=== PATIENT | female | born 1960 | race Caucasian/White ===

== ENCOUNTER 2019-04-23 15:28 | Outpatient (CLI) | payer MEDICARE | END 2019-04-23 15:29 | disposition home or self-care (01) | LOC: DTY/OP 15:28 | PROVIDERS: ATTEND Family Medicine | DX: E66.3 Overweight (principal); E11.9 Type 2 diabetes mellitus without complications | CPT/HCPCS: 97802 ==

== ENCOUNTER 2021-09-14 08:54 | Outpatient (CLI) | payer MEDICARE | END 2021-09-14 08:55 | disposition home or self-care (01) | LOC: BICMAMMO 08:54 | PROVIDERS: ATTEND Family Medicine | DX: Z12.31 Encounter for screening mammogram for malignant neoplasm of breast (principal) | CPT/HCPCS: 77063; 77067 ==

== ENCOUNTER 2023-04-14 13:38 | Outpatient (CLI) | payer MEDICARE | END 2023-04-14 13:39 | disposition home or self-care (01) | LOC: BICMAMMO 13:38 | PROVIDERS: ATTEND Family Medicine | DX: Z12.31 Encounter for screening mammogram for malignant neoplasm of breast (principal); N64.89 Other specified disorders of breast | CPT/HCPCS: 77063; 77067 ==